=== PATIENT | female | born 1995 | race Caucasian/White ===

== ENCOUNTER → 2019-05-05 10:44 | Outpatient (CLI) | payer OTHER, SELFPAY ==
[2019-05-05 12:22] LABS: Hematocrit 34.9 % (36-46); Hemoglobin 11.9 g/dL (12.0-16.0)
[2019-05-05 12:40] LABS: GTT (PREG) 1 Hour PP 50gm Dose 131 mg/dL (76-139)
== END ==
PROVIDERS: Referring Provider Obstetrics & Gynecology; Visit Provider Obstetrics & Gynecology
DX: Z34.02 Encounter for supervision of normal first pregnancy, second trimester (principal); Z3A.26 26 weeks gestation of pregnancy
CPT/HCPCS: 36415; 82950; 85014; 85018

== ENCOUNTER → 2019-06-23 11:32 | Outpatient (CLI) | payer OTHER, SELFPAY ==
[2019-06-25 12:11] LABS: Strep Grp B PCR NEG for Grp B Strep
== END ==
PROVIDERS: Visit Provider Obstetrics & Gynecology
DX: Z34.03 Encounter for supervision of normal first pregnancy, third trimester (principal); Z3A.35 35 weeks gestation of pregnancy
CPT/HCPCS: 87653

== ENCOUNTER 2019-06-25 17:22 | Observation (INO) | payer OTHER, SELFPAY ==
[2019-06-25 18:29] LABS: Alanine Aminotransferase 14 IU/L (<35); Albumin 3.6 g/dL (3.5-5.0); Albumin Globulin Ratio 1.1 (1.0-2.8); Alkaline Phosphatase 137 U/L (38-126); Aspartate Aminotransferase 25 IU/L (14-36); BUN Creatinine Ratio 10.2 (6-22); Bilirubin Total 0.4 mg/dL (0.2-1.3); Blood Urea Nitrogen 5 mg/dL (7-17); Calcium 8.7 mg/dL (8.4-10.2); Carbon Dioxide 22 mmol/L (22-32); Chloride 105 mmol/L (98-107); Estimated Glomerular Filt Rate > 60.0 mL/min (>60); Globulin 3.3 g/dL (1.7-4.1); Glucose 109 mg/dL (70-100); HEMOLYSIS 35 (0-50); Potassium 3.7 mmol/L (3.4-5.1); Sodium 135 mmol/L (137-145); Total Protein 6.9 g/dL (6.3-8.2); Uric Acid 3.1 mg/dL (2.5-6.2)
[2019-06-25 18:33] LABS: Creatinine Urine Random 11.1 mg/dL; Protein (Total) Urine Random 13 mg/dL (0-12); Protein Creatinine Ratio Urine 1.17 GRAM/24H
[2019-06-25 18:41] LABS: Hematocrit 34.2 % (36-46); Mean Corpuscular Hemoglobin 31.1 PG (26-34); Mean Corpuscular Volume 88.6 fL (80-100); Platelet Count 237 X10^3/uL (150-400); Red Blood Cell Count 3.86 X10^6/uL (4.0-5.2); Red Cell Distribution Width 13.1 % (11.6-14.8); White Blood Cell Count 11.3 X10^3/uL (4.5-11.0)
--- NOTE | 2019-06-25 19:48 | P.TNLD_ITS ---
Visit Information Visit Information Date of evaluation: 06/25/19 Primary OB Provider: Tatiana Cabrera Reason for Evaluation: Yes non-stress test and Yes other Comments/Additional reasons for admission: Evaluate for elevated BP sent home 24-year-old G1 female felt unwell this morning and checked her blood pressure. She has a BP cuff at home since has a history of ?white coat elevated BP's at doctor's offices, and then normal at home. In early she was noted to have DBP 87-88 twice then BP remained normal through . She has been checking BP every other day at home recently and had been normal. This a.m. she felt unwell, nondescript--says she cannot describe how she feels unwell, but not herself. Also having slight HAs today which resolved within a few minutes, without medication. Denies any persistent headache. Denies scotomata, vision changes, nausea or abdominal pain. She has checked her BP frequently today. Initially when felt unwell and subsequently checked twice more, BP gradually increased up to 158/92. BP's at home were 137/84, 146/89, 158/92, 141/88, 130/86, 139/84, 141/87, 143/88. [facility]LY [facility] Medical History (Updated 06/25/19 @ 20:04 by Tatiana Cabrera MD) Gestational HTN (Acute) Preeclampsia (Acute) Surgical History (Updated 03/31/19 @ 09:55 by Margo Flores MA) [place] teeth extracted (Acute) Social History marital status: (Yash Villela [facility] [phone]) household members: spouse lives independently: Yes education level: high school occupational status: employed ([employer]) Smoking Status: Former smoker substance use type: does not use well-balanced diet: daily or most days Type(s) of exercise: swimming frequency: 3-4 times per week Exam Vital Signs (past 8 hours): Initial BP here 135/90, then 142/85, now 132/83 Narrative Exam Narrative: General: Well-appearing female Abdomen: Gravid, nontender. No epigastric nor right upper quadrant tenderness Extremities: No pedal edema DTR 2+ patellar, no clonus EFM: Normal baseline, moderate variability, positive accelerations including greater than to 15 x 15 beat accelerations, reactive, no decelerations [place]: No contractions Objective Labs Result Diagrams: 06/25/19 17:48 06/25/19 17:48 Labs: Laboratory Results - last 24 hr 06/25/19 06/25/19 06/25/19 17:30 17:48 17:48 WBC Cancelled 11.3 H RBC Cancelled 3.86 L Hgb Cancelled 12.0 Hct Cancelled 34.2 L MCV Cancelled 88.6 MCH Cancelled 31.1 MCHC Cancelled 35.0 RDW Cancelled 13.1 Plt Count Cancelled 237 Neut % (Auto) Cancelled Lymph % (Auto) Cancelled [place] % (Auto) Cancelled Eos % (Auto) Cancelled Baso % (Auto) Cancelled Neut # (Auto) Cancelled Lymph # (Auto) Cancelled [place] # (Auto) Cancelled Eos # (Auto) Cancelled Baso # (Auto) Cancelled Sodium Potassium Chloride Carbon Dioxide BUN Creatinine Estimated GFR BUN/Creatinine Ratio Glucose Uric Acid Calcium Total Bilirubin AST ALT Alkaline Phosphatase Total Protein Albumin Globulin Albumin/Globulin Ratio U Random Total Protein 13 H Urine Creatinine 11.1 Protein/Creatinin Ratio 1.17 06/25/19 17:48 WBC RBC Hgb Hct MCV MCH MCHC RDW Plt Count Neut % (Auto) Lymph % (Auto) [place] % (Auto) Eos % (Auto) Baso % (Auto) Neut # (Auto) Lymph # (Auto) [place] # (Auto) Eos # (Auto) Baso # (Auto) Sodium 135 L Potassium 3.7 Chloride 105 Carbon Dioxide 22 BUN 5 L Creatinine 0.49 L Estimated GFR > 60.0 BUN/Creatinine Ratio 10.2 Glucose 109 H Uric Acid 3.1 Calcium 8.7 Total Bilirubin 0.4 AST 25 ALT 14 Alkaline Phosphatase 137 H Total Protein 6.9 Albumin 3.6 Globulin 3.3 Albumin/Globulin Ratio 1.1 U Random Total Protein Urine Creatinine Protein/Creatinin Ratio Evaluation Evaluation Laboratory results: Laboratory Tests 06/25/19 06/25/19 06/25/19 17:30 17:48 17:48 WBC Cancelled 11.3 H RBC Cancelled 3.86 L Hgb Cancelled 12.0 Hct Cancelled 34.2 L MCV Cancelled 88.6 MCH Cancelled 31.1 MCHC Cancelled 35.0 RDW Cancelled 13.1 Plt Count Cancelled 237 Neut % (Auto) Cancelled Lymph % (Auto) Cancelled [place] % (Auto) Cancelled Eos % (Auto) Cancelled Baso % (Auto) Cancelled Neut # (Auto) Cancelled Lymph # (Auto) Cancelled [place] # (Auto) Cancelled Eos # (Auto) Cancelled Baso # (Auto) Cancelled Sodium Potassium Chloride Carbon Dioxide BUN Creatinine Estimated GFR BUN/Creatinine Ratio Glucose Uric Acid Calcium Total Bilirubin AST ALT Alkaline Phosphatase Total Protein Albumin Globulin Albumin/Globulin Ratio U Random Total Protein 13 H Urine Creatinine 11.1 Protein/Creatinin Ratio 1.17 06/25/19 17:48 WBC RBC Hgb Hct MCV MCH MCHC RDW Plt Count Neut % (Auto) Lymph % (Auto) [place] % (Auto) Eos % (Auto) Baso % (Auto) Neut # (Auto) Lymph # (Auto) [place] # (Auto) Eos # (Auto) Baso # (Auto) Sodium 135 L Potassium 3.7 Chloride 105 Carbon Dioxide 22 BUN 5 L Creatinine 0.49 L Estimated GFR > 60.0 BUN/Creatinine Ratio 10.2 Glucose 109 H Uric Acid 3.1 Calcium 8.7 Total Bilirubin 0.4 AST 25 ALT 14 Alkaline Phosphatase 137 H Total Protein 6.9 Albumin 3.6 Globulin 3.3 Albumin/Globulin Ratio 1.1 U Random Total Protein Urine Creatinine Protein/Creatinin Ratio Diagnosis, Plan/Disposition Final Diagnosis (1) Gestational HTN: Current Visit: Yes Status: Acute Problem details: Elevated BP's greater than 4 hours apart, consistent with gestational hypertension, suspect preeclampsia with the proteinuria. No prior baseline urine, but with significant proteinuria, suspect she is having increased for consistent with preeclampsia without severe features. (2) Preeclampsia: Current Visit: Yes Status: Acute Problem details: No severe features. Continue to check BP at home. Discussed she may sleep overnight and not wake herself up to check BP. Check tomorrow initially every 2 hours than 4 hours. If remains okay, then can check BP twice daily Will schedule a follow-up visit in the office in 2 days for a BP check and growth ultrasound. Advised her to call for a persistent severe headache, or if headache keeps recurring despite Tylenol, vision changes, nausea or abdominal pain. Discussed induction at 37 weeks, unless needed earlier. She is agreeable to scheduling induction at 37 weeks.
== END 2019-06-25 20:30 | disposition home or self-care (01) ==
PROVIDERS: Admitting Provider Obstetrics & Gynecology; Referring Provider Obstetrics & Gynecology; Visit Provider Obstetrics & Gynecology
DX: O14.03 Mild to moderate pre-eclampsia, third trimester (principal); Z3A.36 36 weeks gestation of pregnancy
CPT/HCPCS: 36415; 59025; 80053; 82570; 84156; 84550; 85027; G0378; G0379

== ENCOUNTER → 2019-07-01 10:02 | Outpatient (CLI) | payer OTHER, SELFPAY ==
[2019-07-02 19:26] LABS: COVID19 Sendout Not Detected (Not Detect)
== END ==
PROVIDERS: Visit Provider Physician Assistant
DX: Z34.90 Encounter for supervision of normal pregnancy, unspecified, unspecified trimester (principal)
CPT/HCPCS: 87635

== ENCOUNTER 2019-07-01 13:56 | Outpatient (CLI) | payer OTHER, SELFPAY | END 2019-07-01 14:50 | disposition home or self-care (01) | LOC: LABOR 14:18 → OB 07-02 12:38 | PROVIDERS: Referring Provider Obstetrics & Gynecology; Visit Provider Obstetrics & Gynecology | DX: O14.93 Unspecified pre-eclampsia, third trimester (principal); Z3A.36 36 weeks gestation of pregnancy; Z11.59 Encounter for screening for other viral diseases | CPT/HCPCS: 59025; 87635; G0378; G0379 ==

== ENCOUNTER 2019-07-02 18:37 | Inpatient (IN) | payer OTHER, SELFPAY ==
--- NOTE | 2019-07-02 19:42 | PM.OBHP.1 ---
OB HPI Date/Time Date of admission: 07/02/19 Date Patient Seen: 07/02/19 Time Patient Seen: 19:30 History of Present Condition Chief complaint: EVAL OF LABOR : 1 Estimated Gestational Age (weeks): 37 Narrative: Sara Villela is a 24 year old G1 female S weeks EGA for gestational hypertension, preeclampsia. One week ago she generally felt unwell. She checked her blood pressure and it was elevated. With subsequent BP later in the day if persisted as elevated and on evaluation in birthing center was elevated as well. BP increased to 146-158/92. She had proteinuria with urine protein creatinine ratio 1.17, (consistent with approximately 1500 mg urine over 24 hours). Her labs were otherwise normal. She had only brief headache, lasting a few minutes, which with then resolved. This had resolved prior to her presentation. Her has otherwise been uncomplicated. She is being admitted for induction of labor due to gestational hypertension, preeclampsia. She has been on rest, sitting at home. BP's have been normal with the modified bed rest. History of Present care: good care Dating criteria: LMP confirmed by 1st trimester US Ultrasounds: normal mid trimester US Obstetrical complications: preeclampsia and gestational hypertension Medical complications: none Preadmission Labs Blood type: B (+) positive -: Antibody screen: negative, GBS status: negative, HBsAG: negative, HIV: negative and RPR/VDLR: negative -: Chlamydia screen: not detected and Gonorrhea screen: not detected -: Rubella: not immune Integrated screen: normal 1 hr GTT: 131 Evaluation Evaluation Baseline heart rate: 140 Variability: Moderate (11-25) monitor accelerations: Present monitor decelerations: Absent Category of Tracing: I Cervical dilation (cm): 0 Cervical effacement (%): 0 station: -3 [facility] Medical History Gestational HTN (Acute) Preeclampsia (Acute) Surgical History [place] teeth extracted (Acute) Social History marital status: (Yash Villela - [phone]) household members: spouse lives independently: Yes education level: high school occupational status: employed ([employer]) Smoking Status: Former smoker substance use type: does not use well-balanced diet: daily or most days Type(s) of exercise: swimming frequency: 3-4 times per week Meds Home Medications and Allergies Home Medications Medication Instructions Recorded Confirmed Type prenat.vits,eli,ilm-bqas-gyxuc 1 tab PO DAILY 03/31/19 07/02/19 History Allergies Allergy/AdvReac Type Severity Reaction Status Date / Time No Known Drug Allergies Allergy Verified 07/02/19 19:39 Review of Systems Review of Systems Narrative: Denies headache, scotomata, nausea or abdominal pain. Denies vaginal bleeding and leakage of fluid. Denies feeling any contractions. Reports good movement Exam Vital Signs (past 8 hours): Afebrile, BP 146-158/92 Narrative Exam Narrative: General: Well-appearing female Abdomen: Gravid, nontender Extremities: Trace pedal edema DTR: 2+ patellar Objective Labs Result Diagrams: 07/02/19 19:50 07/02/19 19:50 Assessment and Plan Assessment and Plan Assessment and Plan narrative: 24-year-old G1 female at 36 weeks with gestational hypertension, preeclampsia Plan: Admit CBC, type and screen and CMP ordered Discussed transcervical Gilliam for cervical ripening with misoprostol, versus medication alone, misoprostol or Cervidil. She prefers medication only tonight, but will consider Gilliam tomorrow if no significant cervical change. Will have Cervidil placed tonight.
[2019-07-02 20:05] LABS: Add Manual Diff / Slide Review NO; Basophils Absolute Auto 0 /uL (0-100); Basophils Percent Auto 0.3 % (0-2); Eosinophils Absolute Auto 100 /uL (0-450); Eosinophils Percent Auto 0.9 % (2-4); Hematocrit 33.6 % (36-46); Hemoglobin 11.6 g/dL (12.0-16.0); Lymphocytes Absolute Auto 2000 /uL (1100-4500); Lymphocytes Percent Auto 16.6 % (25-40); Mean Corpuscular HGB Conc 34.6 % (30-36); Mean Corpuscular Hemoglobin 30.7 PG (26-34); Mean Corpuscular Volume 88.7 fL (80-100); Monocytes Absolute Auto 900 /uL (0-900); Monocytes Percent Auto 7.5 % (3-14); Neutrophils Absolute Auto 8800 /uL (1500-7000); Neutrophils Percent Auto 74.7 % (50-75); Platelet Count 249 X10^3/uL (150-400); Red Blood Cell Count 3.79 X10^6/uL (4.0-5.2); Red Cell Distribution Width 13.5 % (11.6-14.8); White Blood Cell Count 11.8 X10^3/uL (4.5-11.0)
[2019-07-02 20:22] LABS: Alanine Aminotransferase 13 IU/L (<35); Albumin 3.5 g/dL (3.5-5.0); Albumin Globulin Ratio 1.1 (1.0-2.8); Alkaline Phosphatase 148 U/L (38-126); Aspartate Aminotransferase 25 IU/L (14-36); BUN Creatinine Ratio 18.2 (6-22); Bilirubin Total 0.4 mg/dL (0.2-1.3); Blood Urea Nitrogen 8 mg/dL (7-17); Calcium 9.3 mg/dL (8.4-10.2); Carbon Dioxide 23 mmol/L (22-32); Chloride 104 mmol/L (98-107); Estimated Glomerular Filt Rate > 60.0 mL/min (>60); Globulin 3.3 g/dL (1.7-4.1); Glucose 113 mg/dL (70-100); HEMOLYSIS < 15 (0-50); Potassium 3.5 mmol/L (3.4-5.1); Sodium 138 mmol/L (137-145); Total Protein 6.8 g/dL (6.3-8.2)
[2019-07-02] MEDS: DINOPROSTONE VAG (CERVIDIL) 10 MG VAG (20:45)
[2019-07-02 21:05] VITALS: BP 127/80
--- NOTE | 2019-07-03 10:44 | PM.OBPNLAB ---
Date/Time Date Patient Seen: 07/03/19 Time Patient Seen: 07:10 Pain Control Pain control: tolerating well Comments: Patient feeling crampy this a.m.. She has left about 4 hours overnight. She is on the birthing ball this morning and just got back in bed. Pelvic Exam Dilation (cm): 1 Effacement (%): 70 station: -3 Comments: Cervidil palpated to be in place Contractions Contraction frequency (min): 3 (q 2-3) Contraction pattern: Irregular (every to 2-3 minutes) Contraction intensity: Mild Status status: Category l Heart Rate Baseline: 150 Monitor Accelerations: Present Monitor Decelerations: Absent Monitor Variability: Moderate Assessment and Plan Assessment: induction ongoing Comments: Leave Cervidil in place until due for removal at 8:30 a.m.. Will re-assess after cervidil removed; to consider transcervical Gilliam balloon placement versus Pitocin if her contractions do not space, too frequent for misoprostol.
[2019-07-03] MEDS: LACTATED RINGERS 1,000 ML 100 ML IV ×2 (11:30→16:29)
[2019-07-03] MEDS: OXYTOCIN PREMIX 30 UNIT/500 ML PLAST..BAG IV (11:31)
--- NOTE | 2019-07-03 12:53 | PM.OBPNLAB ---
Date/Time Date Patient Seen: 07/03/19 Time Patient Seen: 09:45 Pain Control Pain control: tolerating well Comments: The patient feeling more crampy from 2 hours ago. RN unable to feel Cervidil, questions if still in for removal. Repeat exam by me as I had felt these Cervidil at her exam at 7:00 a.m. and noted string went in further during my exam. Pelvic Exam Dilation (cm): 1 Effacement (%): 60 station: -3 Contractions Contraction frequency (min): 2 (q 2-3) Contraction pattern: Regular (every to 2-3 minutes) Contraction intensity: Mild Status status: Category l Monitor Accelerations: Present Monitor Decelerations: Absent Monitor Variability: Moderate Assessment and Plan Assessment: induction ongoing Comments: Cervidil removed now at 9:45 a.m. Discussed transcervical Gilliam balloon for additional cervical ripening since contractions are to frequent for additional prostaglandins, verses trial of Pitocin. She declines a transcervical Gilliam. Desires proceeding with a trial of Pitocin for induction/augmentation Will start Pitocin in 1 hour
--- NOTE | 2019-07-03 20:51 | PM.OBPNLAB ---
Date/Time Date Patient Seen: 07/03/19 Time Patient Seen: 19:00 Pain Control Pain control: tolerating well Pelvic Exam Dilation (cm): 1 Effacement (%): 60 station: -3 Contractions Pitocin rate (mU/min): 10 Contraction frequency (min): 2 (q 2-3) Contraction pattern: Regular (every to 2-3 minutes) Contraction intensity: Mild Status status: Category l Heart Rate Baseline: 130 Monitor Accelerations: Present Monitor Decelerations: Absent Monitor Variability: Moderate Assessment and Plan Assessment: induction ongoing Comments: Repeat exam at 6:30 p.m., cervix still 1/60%. Cervix is moving from posterior to mid- posterior and softening. No significant change however. Discussed doing something overnight again for more cervical ripening. Discussed balloon verses repeat prostaglandins. She now desire to go ahead and try the trans cervical Gilliam balloon. If contractions not too frequent, will then use low-dose Pitocin overnight with the Gilliam balloon. Cervix was prepped with iodine and attempted to pass a balloon but it pushed back out. Scopette handle attempted to be used as per typical down the Gilliam channel to keep the Gilliam somewhat rigid, however scopette we had do not currently fit. Procedure stopped and will see if we have a stylet for the Gilliam.
--- NOTE | 2019-07-03 21:21 | PM.OBPNLAB ---
Date/Time Date Patient Seen: 07/03/19 Time Patient Seen: 21:15 Pain Control Pain control: tolerating well Pelvic Exam Dilation (cm): 1 Effacement (%): 60 station: -2 Contractions Contraction frequency (min): 5 (q 2-3) Contraction pattern: Regular (every to 2-3 minutes) Contraction intensity: Mild Status status: Category l Monitor Accelerations: Present Monitor Decelerations: Absent Monitor Variability: Moderate Assessment and Plan Assessment: induction ongoing Comments: Delay with obtaining a stylet for the Gilliam catheter through the cervix. Discussed with the patient if she desires to proceed versus prostataglandin medication tonight. She is tired this point and wants to go to bed, declines proceeding with the procedure for the Gilliam, will do tomorrow morning if no further progress. Contractions have spaced. Will use Cytotec 50 mcg orally q.4-6 hours overnight for cervical ripening.
[2019-07-03] MEDS: miSOPROStoL 25 MCG TABLET 50 MCG PO (21:45)
[2019-07-04] MEDS: miSOPROStoL 25 MCG TABLET 50 MCG PO ×2 (01:46→05:49)
--- NOTE | 2019-07-04 08:59 | PM.OBPNLAB ---
Date/Time Date Patient Seen: 07/04/19 Time Patient Seen: 08:30 Pain Control Pain control: tolerating well Comments: Sara is status post 3rd dose of Cytotec at 5:45 a.m.. She is not feeling any discomfort. She has noted some mucus plug passing. She slept well last. Pelvic Exam Dilation (cm): 1 Effacement (%): 60 station: -2 Comments: Cervix not checked at this time Contractions Contraction frequency (min): 5 (q 5-6) Contraction pattern: Regular (every to 2-3 minutes) Contraction intensity: Mild Status status: Category l Heart Rate Baseline: 130 Monitor Accelerations: Present Monitor Decelerations: Absent Monitor Variability: Moderate Assessment and Plan Assessment: induction ongoing Comments: Will recheck her cervix at 945, when she would be due for next dose of Cytotec if needed. BP's with only mild elevation when she felt crampy or yesterday afternoon, otherwise normal.
--- NOTE | 2019-07-04 10:59 | PM.OBPNLAB ---
Date/Time Date Patient Seen: 07/04/19 Time Patient Seen: 10:45 Pain Control Pain control: tolerating well Pelvic Exam Dilation (cm): 1 Effacement (%): 60 station: -2 Amniotic membrane status: Intact Comments: Cervix is now mid position, softer but still 60% effacement only. Exam at 10:05 a.m. Patient desired to proceed with transcervical Gilliam balloon placement after exam. Speculum placed. Cervix prepped with iodine. Gilliam balloon placed to the cervix. With initial insufflation, balloon noted to be coming through the cervix. Balloon deflated and Gilliam removed. Gilliam then replaced and inserted further through the cervix. Balloon insufflated to 50ml and appears consistent with proper location now. Contractions Contraction frequency (min): 4 (q 5-6) Contraction pattern: Regular (every to 2-3 minutes) Contraction intensity: Mild Status status: Category l Heart Rate Baseline: 140 Monitor Accelerations: Present Monitor Decelerations: Absent Monitor Variability: Moderate Assessment and Plan Assessment: induction ongoing Comments: Transcervical Gilliam balloon placed. If contractions not to frequent, will repeat a dose of Cytotec in 1 hour
[2019-07-04] MEDS: OXYTOCIN PREMIX 30 UNIT/500 ML PLAST..BAG IV (16:45)
--- NOTE | 2019-07-04 16:54 | PM.OBPNLAB ---
Date/Time Date Patient Seen: 07/04/19 Time Patient Seen: 15:00 Pain Control Pain control: tolerating well Comments: Contractions became uncomfortable soon after her transcervical Gilliam balloon placement. After few hours, balloon did fall out short time ago. She is moderately uncomfortable with the contractions, but coping well. Declines any pain medication. Pelvic Exam Dilation (cm): 4 Effacement (%): 75 station: -2 Amniotic membrane status: Intact Contractions Contraction frequency (min): 4 (q 5-6) Contraction pattern: Regular (every to 2-3 minutes) Contraction intensity: Mild Status status: Category l Monitor Accelerations: Present Monitor Decelerations: Absent Assessment and Plan Assessment: induction ongoing and other (Early labor) Plan: begin patient augmentation Comments: Discussed with patient, will begin Pitocin to continue induction since balloon now out. Agreeable to starting Pitocin.
--- NOTE | 2019-07-04 17:01 | PM.OBPNLAB ---
Date/Time Date Patient Seen: 07/04/19 Time Patient Seen: 16:45 Pain Control Pain control: tolerating well Comments: Pitocin never started. Patient shower, was awaiting dinner offered to her by RN. Patient feeling less discomfort, less crampy. Pelvic Exam Dilation (cm): 4 Effacement (%): 75 station: -2 Amniotic membrane status: Intact Contractions Contraction frequency (min): 4 (q 5-6) Contraction pattern: Regular (every to 2-3 minutes) Contraction intensity: Mild Status status: Category l
--- NOTE | 2019-07-04 19:41 | PM.OBPNLAB ---
Date/Time Date Patient Seen: 07/04/19 Time Patient Seen: 16:45 Pain Control Pain control: tolerating well Comments: Pitocin never started. Patient offered shower and dinner by RN, and held off on starting the Pitocin. Patient now only feeling crampy. Pain scale had been 8/10, now 2/10 with contractions. Pelvic Exam Dilation (cm): 4 Effacement (%): 75 station: -2 Amniotic membrane status: Intact Comments: Not re-checked. Contractions Contraction frequency (min): 5 (q 5-6) Contraction pattern: Regular (every to 2-3 minutes) Contraction intensity: Mild Status status: Category l Monitor Accelerations: Present Monitor Decelerations: Absent Monitor Variability: Moderate Assessment and Plan Assessment: induction ongoing Comments: Start Pitocin. Transcervical Gilliam balloon fell out 2 hours ago.
--- NOTE | 2019-07-04 19:54 | PM.OBPNLAB ---
Date/Time Date Patient Seen: 07/04/19 Time Patient Seen: 19:30 Pain Control Pain control: tolerating well Comments: Only feeling contractions this minimal cramping, pain level 1-2. Pelvic Exam Dilation (cm): 5 Effacement (%): 75 station: -2 Amniotic membrane status: Intact Comments: Cervix midposition Contractions Contraction frequency (min): 5 (q 5-6) Contraction pattern: Regular Contraction intensity: Mild Status status: Category l Heart Rate Baseline: 140 Monitor Accelerations: Present Monitor Decelerations: Absent Monitor Variability: Moderate Assessment and Plan Assessment: induction ongoing Comments: Cervix stretchy 5 cm/75%, midposition, consistent with early labor still. Will hold off on AROM for now, increase Pitocin.
--- NOTE | 2019-07-04 23:51 | PM.OBPNLAB ---
Date/Time Date Patient Seen: 07/04/19 Time Patient Seen: 23:51 Pain Control Pain control: other Comments: Becoming more uncomfortable with contractions, feeling much stronger almost back to the 8/10 discomfort. Pelvic Exam Dilation (cm): 5 Effacement (%): 75 station: -2 Amniotic membrane status: Intact Contractions Pitocin rate (mU/min): 13 Contraction frequency (min): 3 Contraction pattern: Regular Contraction intensity: Moderate Status status: Category l Heart Rate Baseline: 130 Monitor Accelerations: Present Monitor Decelerations: Absent Monitor Variability: Moderate Assessment and Plan Assessment: induction ongoing Plan: continuous present management Comments: Becoming more uncomfortable. Likely will desire something for pain shortly. Stat repeat CBC ordered to check platelets for possible epidural. CMP ordered.
[2019-07-05 00:26] LABS: Hematocrit 34.2 % (36-46); Hemoglobin 11.8 g/dL (12.0-16.0); Mean Corpuscular HGB Conc 34.6 % (30-36); Mean Corpuscular Hemoglobin 30.4 PG (26-34); Mean Corpuscular Volume 87.9 fL (80-100); Platelet Count 244 X10^3/uL (150-400); Red Blood Cell Count 3.89 X10^6/uL (4.0-5.2); Red Cell Distribution Width 13.4 % (11.6-14.8); White Blood Cell Count 14.1 X10^3/uL (4.5-11.0)
[2019-07-05 00:33] LABS: Alanine Aminotransferase 19 IU/L (<35); Albumin 3.5 g/dL (3.5-5.0); Alkaline Phosphatase 155 U/L (38-126); Aspartate Aminotransferase 29 IU/L (14-36); BUN Creatinine Ratio 8.2 (6-22); Bilirubin Total 0.4 mg/dL (0.2-1.3); Blood Urea Nitrogen 4 mg/dL (7-17); Calcium 9.2 mg/dL (8.4-10.2); Carbon Dioxide 25 mmol/L (22-32); Chloride 105 mmol/L (98-107); Estimated Glomerular Filt Rate > 60.0 mL/min (>60); Globulin 3.4 g/dL (1.7-4.1); Glucose 104 mg/dL (70-100); HEMOLYSIS < 15 (0-50); Sodium 138 mmol/L (137-145); Total Protein 6.9 g/dL (6.3-8.2)
--- NOTE | 2019-07-05 02:00 | PM.OBPNLAB ---
Date/Time Date Patient Seen: 07/05/19 Time Patient Seen: 02:00 Pain Control Pain control: epidural Comments: Patient comfortable status post epidural. She does had spontaneous rupture membranes, clear. Pelvic Exam Dilation (cm): 5 Effacement (%): 80 station: -2 Amniotic membrane status: Ruptured Comments: Cervix anterior for the 1st time and more of a tense 5 cm (prior was a stretchy 5 cm with cervix being mid position) Contractions Contraction frequency (min): 3 Contraction pattern: Regular Contraction intensity: Moderate Status status: Category l Heart Rate Baseline: 130 Monitor Accelerations: Present Monitor Decelerations: Absent Monitor Variability: Moderate Assessment and Plan Assessment: active labor Comments: Patient cervical change consistent with developing more active labor, and now spontaneous rupture membranes Continue Pitocin. Will recheck cervix in a several hours, earlier as needed
--- NOTE | 2019-07-05 07:49 | PM.OBPRVD ---
 Events: Induced HTN and Pre-Eclampsia Labor & Delivery Delivery date: 07/05/19 Intrapartal events: None Cervical ripening method: per Gilliam bulb protocol (Cervidil, misoprostil then Gilliam bulb) Induction method: per pitocin protocol Delivery augmentation: pitocin Delivery monitor: external FHT Route of delivery: L&D Laceration Description: None Estimated blood loss (mL): 200 Anesthesia type: Epidural Complications: none Narrative: She had a normal active phase. She progressed to completely dilated. She began pushing, pushed approximately 15 minutes and had a spontaneous vaginal delivery over an intact perineum from the left occiput posterior position. Nuchal cord X1 was present. It was not tight, but cord extended from next a baby shoulders, over the neck, and was a little snug to trap puller the mild caput. Cord clamped and cut on the perineum. Anterior followed by posterior shoulder were delivered without difficulty with the patient pushing, followed by the remainder of the body. A baby girl was delivered at 0710. The baby did not initially cry and had poor tone. The infant's face and mouth was wiped gently with a towel, and the baby still had poor tone and was not vigorous and was handed off to the nurse in attendance for the baby. The baby was taken to the isolette and after further wiping off, gently stimulating the baby and positioning the baby's head, airway, the baby became vigorous, cried spontaneously and continued to be vigorous. The baby was then taken back to the mother and placed skin to skin and continued to do well. Placenta delivered spontaneously approximately 5 minutes later. She had normal light bleeding with delivery of the placenta. Routine uterine massage was performed and she was given routine Pitocin IV. On inspection the perineum was intact. Vaginal sidewalls were intact. The cervix palpated to be intact. She only had a slight left periurethral abrasion. bleeding remained minimal. She did well and was left to recover in good condition. Weight of the baby is pending. Time of was 0710 [place] Baby 1: Infant gender: Female Presentation: vertex position: Right Occiput Posterior (Left occiput anterior) Placenta delivery description: Spontaneous and Normal Configuration cord vessel description: Nuchal Cord score (1 min): 7 score (5 min): 9 Plan for aftercare: Left to recover in the delivery room in good condition. Will later be transferred to room.
[2019-07-05] MEDS: IBUPROFEN 600 MG TABLET PO ×2 (10:08→21:42)
[2019-07-05] MEDS: PRENATAL VIT,CALC/IRON/FOLIC 1 TABLET 1 TAB PO (10:08)
[2019-07-05] MEDS: OXYTOCIN PREMIX 30 UNIT/500 ML PLAST..BAG IV (16:00)
[2019-07-06 05:28] LABS: Add Manual Diff / Slide Review NO; Basophils Absolute Auto 100 /uL (0-100); Basophils Percent Auto 0.5 % (0-2); Eosinophils Absolute Auto 100 /uL (0-450); Eosinophils Percent Auto 0.7 % (2-4); Hematocrit 26.1 % (36-46); Hemoglobin 8.9 g/dL (12.0-16.0); Lymphocytes Absolute Auto 2500 /uL (1100-4500); Lymphocytes Percent Auto 16.5 % (25-40); Mean Corpuscular HGB Conc 34.2 % (30-36); Mean Corpuscular Hemoglobin 30.5 PG (26-34); Mean Corpuscular Volume 89.2 fL (80-100); Monocytes Absolute Auto 1200 /uL (0-900); Monocytes Percent Auto 7.7 % (3-14); Neutrophils Absolute Auto 11300 /uL (1500-7000); Neutrophils Percent Auto 74.6 % (50-75); Platelet Count 200 X10^3/uL (150-400); Red Blood Cell Count 2.93 X10^6/uL (4.0-5.2); Red Cell Distribution Width 13.4 % (11.6-14.8); White Blood Cell Count 15.2 X10^3/uL (4.5-11.0)
--- NOTE | 2019-07-06 10:39 | P.PNOB_ITS ---
Subjective - OB Subjective Patient comments: no complaints, pain well controlled, tolerating diet and flatus present (+BM) [place] baby status: doing well feeding status: exclusively breast feeding Narrative: This patient is a 24yo P1 PPD#1 s/p after induction of labor for preeclampsia without severe features. BPs have been 120s-130s/80s since delivery, and patient denies ABREU, visual changes, chest pain or SOB, RUQ pain, or any obstetrical complaints today. Patient is ambulating, voiding, had BM, tolerating regular diet well, and mild to moderate lochia today. Date Patient Seen: 07/06/19 Time Patient Seen: 10:39 Exam Vital Signs (past 8 hours): 120s-130s/80s, HR 70s Const General: cooperative, healthy appearing and comfortable Resp Effort & Inspection: normal respiratory effort Auscultation: clear to auscultation bilaterally Cardio Rate: regular rate Rhythm: regular rhythm GI Palpation: soft and No tender External Female Exam: external appearance normal Objective Labs Result Diagrams: 07/06/19 05:20 07/05/19 00:15 Labs: Laboratory Results - last 24 hr 07/06/19 05:20 WBC 15.2 H RBC 2.93 L Hgb 8.9 L Hct 26.1 L MCV 89.2 MCH 30.5 MCHC 34.2 RDW 13.4 Plt Count 200 Neut % (Auto) 74.6 Lymph % (Auto) 16.5 L [place] % (Auto) 7.7 Eos % (Auto) 0.7 L Baso % (Auto) 0.5 Neut # (Auto) 49399 H Lymph # (Auto) 2500 [place] # (Auto) 1200 H Eos # (Auto) 100 Baso # (Auto) 100 Assessment & Plan Assessment and Plan (1) Preeclampsia: Status: Acute Current Visit: No (2) Vaginal delivery: Status: Acute Current Visit: Yes Plan day: 1 plan OB: routine care and discharge home Comments: This patient is doing well, meeting all goals with no hypertension or PIH symptoms. precautions were discussed, and the patient will follow up in clinic within the week for a BP check. All questions answered, patient and her partner vocalized understanding. Time Spent With Patient Time: Total time spent is greater than 50% in coordination of care (as documented) at patient's floor/unit and/or counseling patient: Time with patient: 15-24 minutes
--- NOTE | 2019-07-06 10:48 | P.DS_ITS ---
Discharge Providers Provider Date of admission: 07/02/19 18:37 Discharge Date: 07/06/19 Consults: 07/06/19 07:42 Consult to [employer] Routine Comment: Discharge provider: Lo Riggs MD Summary Hospital Course Date Patient Seen: 07/06/19 Time Patient Seen: 10:49 Procedures: vaginal delivery Hospital Course: This patient was admitted for induction of labor for preeclampsia without severe features at 37 weeks. She was induced with cervidil, oral cytotec, [place] balloon, and pitocin, and was delivered of a healthy baby girl without complication. Her course was complicated by urinary retention in the afternoon of PPD#0, which resolved by PPD#1. She had no other intrapartum or immediate complications. Peripartum Data Delivery Method: Natural Vaginal Laceration description: None complications: other [place] 1: Gender: Female Disposition of : home Discharge Diagnosis (1) Preeclampsia: Status: Acute (2) Vaginal delivery: Status: Acute Status at Discharge Cognitive/behavioral status at discharge: oriented Functional status at discharge: independent ambulation Overall status at discharge: patient is progressing back to baseline Time Spent with Patient Time attestation: Total time spent providing and/or coordinating discharge services: Time spent: Less than 30 minutes Objective Labs Result Diagrams: 07/06/19 05:20 07/05/19 00:15 Labs: Laboratory Results - last 24 hr 07/06/19 05:20 WBC 15.2 H RBC 2.93 L Hgb 8.9 L Hct 26.1 L MCV 89.2 MCH 30.5 MCHC 34.2 RDW 13.4 Plt Count 200 Neut % (Auto) 74.6 Lymph % (Auto) 16.5 L [place] % (Auto) 7.7 Eos % (Auto) 0.7 L Baso % (Auto) 0.5 Neut # (Auto) 18294 H Lymph # (Auto) 2500 [place] # (Auto) 1200 H Eos # (Auto) 100 Baso # (Auto) 100 Discharge Plan Discharge Plan Patient Disposition: Home Discharge orders & Medications Prescriptions: Continued prenat.vits,eli,[id number] Tablet 1 tab PO DAILY RF: 0 Follow up/Referrals: Tatiana Cabrera MD [Physician] - 3-5 Days Diet/Activity/Treatments Diet: Regular Activity: Nothing in the vagina for 6 weeks. Avoid heavy lifting for 6 weeks. If you develop increasing bleeding, fevers, chills, nausea, pain, headaches, visual changes, or any other symptoms or concerns, call the office or come to the ED. Skin/Wound/Dressing Care Report to your healthcare provider any signs of infection, such as:: chills, fever, night sweats and increased pain Visit Report/Discharge Packet Instructions: DI for Labor and Delivery, Vaginal
[2019-07-06 13:25] VITALS: BP 127/80; PULSE 88; RESP 18; TEMP 36.4
== END 2019-07-06 15:00 | disposition home or self-care (01) | DRG 807 ==
PROVIDERS: Admitting Provider Obstetrics & Gynecology; Referring Provider Obstetrics & Gynecology; Visit Provider Obstetrics & Gynecology
DX: O14.04 Mild to moderate pre-eclampsia, complicating childbirth (principal); Z37.0 Single live birth; Z3A.37 37 weeks gestation of pregnancy; O69.81X0 Labor and delivery complicated by cord around neck, without compression, not applicable or unspecified; O60.23X0 Term delivery with preterm labor, third trimester, not applicable or unspecified
CPT/HCPCS: 01967; 36415; 59050; 59200; 59410; 80053; 85025; 85027; 86850; 86900; 86901; G0379; J2590